=== PATIENT | male | born 1950 | race Caucasian/White ===

== ENCOUNTER 2020-05-24 15:35 | Observation (INO) ==
[2020-05-24] MEDS ORDERED: 0.9 % Sodium Chloride 1,000 ML ONE (16:10)
[2020-05-24 16:22] LABS: VBG HCO3 27 mEq/L (21-27); VBG PCO2 46 mmHg (41-51); VBG PH 7.38 pH Units (7.32-7.42); VBG PO2 114 mmHg (25-50)
[2020-05-24 16:23] LABS: Basophils % 0.4 %; Eosinophils # 0.2 K/mcL (0.0-0.6); Eosinophils % 2.1 %; Hematocrit 44.2 % (37.5-50.1); Hemoglobin 14.3 g/dL (12.9-16.9); Immature Granulocytes % 0.3 % (0-4); Lymphocytes # 1.6 K/mcL (0.6-4.6); Mean Corpuscular HGB Conc 32.4 g/dL (31.6-35.5); Mean Corpuscular Hemoglobin 28.9 pg (28.0-33.3); Mean Corpuscular Volume 89.3 fL (83.0-100.0); Monocytes # 0.5 K/mcL (0.0-1.3); Monocytes % 7.2 %; Neutrophils # 4.9 K/mcL (1.6-8.9); Platelet Count 211 K/mcL (140-400); Red Blood Count 4.95 M/mcL (4.19-5.50); White Blood Count 7.2 K/mcL (4.3-11.1)
[2020-05-24] MEDS ORDERED: 0.9 % Sodium Chloride 1,000 ML IVC ONE ×2 (16:52→17:14)
[2020-05-24 17:08] LABS: Bacteria,Urine Few per hpf (None-Few); Bilirubin,Urine Negative (Negative); Blood,Urine Negative (Negative); Clarity,Urine Clear (Clear); Color,Urine Colorless (Yellow); Glucose,Urine (UA) >=1000 mg/dL (Normal); Hyaline Casts,Urine Few per lpf (None Seen); Ketones,Urine Negative (Negative); Leukocyte Esterase,Urine Negative (Negative); Mucus,Urine Few per lpf (None-Few); Nitrite,Urine Negative (Negative); Protein,Urine Negative (Neg-Trace); Specific Gravity,Urine 1.025 (1.010-1.025); Squamous Epithelial Cell,Urine Few per hpf (None-Few); Urobilinogen,Urine Normal (Normal)
[2020-05-24 17:13] LABS: Potassium 4.3 mEq/L (3.5-5.1)
[2020-05-24] MEDS ORDERED: Insulin Human Regular 100 UNIT in 0.9 % Sodium Chloride 100 ML IVC SCH (17:15)
[2020-05-24] MEDS ORDERED: Ondansetron 4 MG/2 ML VIAL IVP PRN ×2 (17:37→17:54)
[2020-05-24] MEDS ORDERED: Insulin Human Regular 10 UNIT in 0.9 % Sodium Chloride 10 ML IV ONE (17:41)
[2020-05-24] MEDS ORDERED: Naloxone 0.4 MG/ML INJ IVP PRN (17:54)
[2020-05-24] MEDS ORDERED: Acetaminophen 325 MG TABLET PO PRN (17:54)
[2020-05-24] MEDS ORDERED: Insulin Regular, Human 100 UNIT/ML IV PRN (17:59)
[2020-05-24] MEDS ORDERED: *HR* Dextrose 50 % in Water (Vial) 50 ML VIAL IVP PRN (17:59)
[2020-05-24 18:21] LABS: Estimated Average Glucose 318 mg/dl
[2020-05-24] MEDS: 0.9 % Sodium Chloride 1,000 ML IVC SCH (20:50)
[2020-05-24 20:56] LABS: Calcium 8.5 mg/dL (8.6-10.3); Potassium 3.5 mEq/L (3.5-5.1)
[2020-05-24] MEDS ORDERED: Dextrose Gel 15 GM/37.5 ML TUBE PO PRN ×2 (22:23)
[2020-05-24] MEDS ORDERED: Insulin DETEMIR 100 UNIT/ML X5UNITS SQ SCH (22:30)
[2020-05-24 23:02] LABS: Phosphorous 2.8 mg/dL (2.7-4.5)
[2020-05-25] MEDS: 0.9 % Sodium Chloride 1,000 ML IVC SCH (04:48)
[2020-05-25 05:41] LABS: Basophils % 0.4 %; Eosinophils # 0.3 K/mcL (0.0-0.6); Eosinophils % 3.6 %; Hematocrit 39.9 % (37.5-50.1); Hemoglobin 13.2 g/dL (12.9-16.9); Immature Granulocytes % 0.3 % (0-4); Lymphocytes # 2.1 K/mcL (0.6-4.6); Lymphocytes % 27.5 %; Mean Corpuscular HGB Conc 33.1 g/dL (31.6-35.5); Mean Corpuscular Hemoglobin 29.1 pg (28.0-33.3); Mean Corpuscular Volume 87.9 fL (83.0-100.0); Mean Platelet Volume 11.3 fL (9.4-12.4); Monocytes # 0.5 K/mcL (0.0-1.3); Monocytes % 6.3 %; Neutrophils # 4.6 K/mcL (1.6-8.9); Platelet Count 176 K/mcL (140-400); Red Blood Count 4.54 M/mcL (4.19-5.50); Red Cell Distribution Width 12.5 % (11.5-14.5); Segmented Neutrophils % 61.9 %; White Blood Count 7.5 K/mcL (4.3-11.1)
[2020-05-25] MEDS ORDERED: *HR* Heparin 5,000 UNIT/ML VIAL SQ SCH (06:00)
[2020-05-25] MEDS: Insulin LISPRO 300 UNITS/3 ML VIAL SQ SCH ×2 (08:38→11:39)
[2020-05-25 09:00] LABS: Calcium 8.6 mg/dL (8.6-10.3); Potassium 3.6 mEq/L (3.5-5.1)
[2020-05-25] MEDS ORDERED: Sucralfate 1 GM TABLET PO SCH (09:00)
[2020-05-25] MEDS ORDERED: gemfibroziL 600 MG TABLET PO SCH (09:00)
[2020-05-25] MEDS ORDERED: amLODIPine 5 MG TABLET PO SCH (09:00)
[2020-05-25] MEDS ORDERED: Insulin LISPRO 300 UNITS/3 ML VIAL SQ ONE (11:33)
[2020-05-25 15:43] VITALS: BP 128/77
[2020-05-25] MEDS ORDERED: Insulin LISPRO 300 UNITS/3 ML VIAL SQ SCH (21:00)
== END 2020-05-25 16:29 | disposition home or self-care (01) ==
LOC: EMEROOARM 15:35 → 2NNU 15:35 → SUATTDRO 18:24 → 2NNU 20:05
PROVIDERS: ADMIT Internal Medicine; ATTEND Internal Medicine